=== PATIENT | male | born 1985 | race Two or more races ===

== ENCOUNTER 2019-12-04 02:11 | Emergency (ER) | payer MEDICAID ==
[~2019-12-04] VITALS: Ht 177.8 cm; Wt 97.5 kg
[2019-12-04 03:12] LABS: Basophils # (auto) 0.1 10 ^3/uL (0-0.2); Eosinophils # (auto) 0.3 10 ^3/uL (0-0.8); Eosinophils % (auto) 4.3 % (0.0-7.0); Hematocrit 43.3 % (41.0-53.0); Hemoglobin 14.9 g/dL (13.5-17.5); Lymphocytes # (auto) 2.4 10 ^3/uL (0.4-5.4); Lymphocytes % (auto) 35.9 % (10.0-50.0); Mean Corpuscular Hemoglobin 30.1 pg (28.0-32.0); Mean Corpuscular Hgb Conc. 34.5 g/dL (32.0-36.0); Mean Corpuscular Volume 87.1 fL (80.0-100.0); Monocytes # (auto) 0.5 10 ^3/uL (0-1.3); Monocytes % (auto) 7.7 % (0.0-12.0); Neutrophils # (auto) 3.4 10 ^3/uL (1.6-8.6); Neutrophils % (auto) 51.1 % (37.0-80.0); Nucleated Red Blood Cells % 0.1 %; Platelet Count (auto) 217 10^3/uL (140-450); Red Blood Cells 4.97 10^6/uL (4.5-5.90); Red Cell Distribution Width 13.4 % (11.8-14.3); White Blood Cell 6.6 10^3/uL (4.4-10.8)
[2019-12-04 03:28] LABS: Albumin 3.9 g/dL (3.4-5.0); Calcium 8.7 mg/dL (8.5-10.1); Potassium 3.7 mmol/L (3.5-5.1)
[2019-12-04 03:31] LABS: BUN/Creatinine Ratio 11.9; Bilirubin, Total 0.5 mg/dL (0.2-1.0); Total Protein 7.3 g/dL (6.4-8.2); Uric Acid 8.6 mg/dL (3.5-7.2)
[2019-12-04] MEDS ORDERED: KETOROLAC TROMETH 60MG/2ML VIAL IM ONE (06:45)
[2019-12-04 06:54] VITALS: BP 144/95
== END 2019-12-04 06:58 | disposition home or self-care (01) ==
LOC: ER 02:13
DX: M10.072 Idiopathic gout, left ankle and foot (principal)
CPT/HCPCS: 36415; 73630; 80053; 84550; 85025; 96372; 99284; J1885

== ENCOUNTER 2021-04-05 07:32 | Emergency (ER) | payer MEDICAID ==
[~2021-04-05] VITALS: Ht 177.8 cm; Wt 95.3 kg
[2021-04-05 07:52] VITALS: BP 142/101
[2021-04-05] MEDS ORDERED: KETOROLAC TROMETH 60MG/2ML VIAL IM ONE (08:00)
[2021-04-05] MEDS ORDERED: methylPREDNISolone SOD SUCC 125 MG/2 ML VL IM ONE (08:00)
== END 2021-04-05 08:32 | disposition home or self-care (01) ==
LOC: ER 07:32
DX: M10.062 Idiopathic gout, left knee (principal); Z88.0 Allergy status to penicillin
CPT/HCPCS: 96372; 99284; J1885; J2930

== ENCOUNTER 2023-12-07 22:06 | Emergency (ER) | payer MEDICAID ==
[~2023-12-07] VITALS: Ht 177.8 cm; Wt 93.2 kg
[2023-12-08] MEDS ORDERED: HYDR-4902 PO (01:32)
[2023-12-08] MEDS: IBUPROFEN 800 MG TAB PO ONE (04:46)
[2023-12-08] MEDS: DexAMETHasone SOD PHOS 10MG/1ML VIAL INJ IM ONE (04:46)
[2023-12-08 05:15] VITALS: BP 129/74; PULSE 72; RESP 16; TEMP 97.8; O2SAT 96
== END 2023-12-08 05:15 | disposition home or self-care (01) ==
LOC: ER 22:06
DX: M70.31 Other bursitis of elbow, right elbow (principal); Z88.0 Allergy status to penicillin
CPT/HCPCS: 73080; 96372; 99283; J1100